=== PATIENT | male | born 1975 | race Caucasian/White ===

== ENCOUNTER 2023-08-27 03:56 | Emergency (ER) | payer MEDICAID, OTHER ==
[~2023-08-27] VITALS: Ht 170.2 cm; Wt 106.6 kg
[2023-08-27] MEDS ORDERED: IBUPROFEN 600 MG TABLET PO ONE (04:30)
[2023-08-27] MEDS ORDERED: IBUPROFEN 600 MG TABLET ONE (04:31)
[2023-08-27] MEDS ORDERED: IBUP-1953 PO (05:49)
[2023-08-27 08:22] VITALS: BP 122/88; TEMP 98.3; O2SAT 98
== END 2023-08-27 08:22 | disposition home or self-care (01) ==
LOC: ER 04:07
DX: S83.92XA Sprain of unspecified site of left knee, initial encounter (principal); F17.200 Nicotine dependence, unspecified, uncomplicated; Z60.2 Problems related to living alone; V29.99XA Rider (driver) (passenger) of other motorcycle injured in unspecified traffic accident, initial encounter; Y93.89 Activity, other specified; Y92.89 Other specified places as the place of occurrence of the external cause; Y99.8 Other external cause status
CPT/HCPCS: 73564-TC

== ENCOUNTER 2024-01-21 07:50 | Emergency (ER) | payer MEDICAID, OTHER ==
[~2024-01-21] VITALS: Ht 170.2 cm; Wt 93.0 kg
[~2024-01-21 07:50] MED LIST: IBUP-1953 PO
[2024-01-21 08:01] VITALS: BP 155/82; TEMP 98.8; O2SAT 96
[2024-01-21] MEDS ORDERED: AMOXICILLIN TRIHYDRATE 250 MG CAPSULE ONE ×2 (08:31→08:34)
[2024-01-21] MEDS ORDERED: AMOX-430 PO (08:32)
[2024-01-21] MEDS ORDERED: IBUPROFEN 600 MG TABLET ONE (08:32)
[2024-01-21] MEDS: AMOXICILLIN TRIHYDRATE 500 MG CAPSULE PO ONE (08:36)
[2024-01-21] MEDS: IBUPROFEN 600 MG TABLET PO ONE (08:36)
== END 2024-01-21 09:09 | disposition home or self-care (01) ==
LOC: ER 07:56
DX: J02.9 Acute pharyngitis, unspecified (principal); F17.200 Nicotine dependence, unspecified, uncomplicated; Z79.899 Other long term (current) drug therapy

== ENCOUNTER 2024-03-28 05:56 | Emergency (ER) | payer MEDICAID ==
[~2024-03-28] VITALS: Ht 170.2 cm; Wt 93.0 kg
[~2024-03-28 05:56] MED LIST changes: +AMOX-430 PO
[2024-03-28] MEDS: BACITRACIN ZINC OINT (15 GM) 15 GM TUBE TP SCH (06:59)
[2024-03-28 07:02] VITALS: BP 151/79; TEMP 98; O2SAT 99
== END 2024-03-28 07:14 | disposition home or self-care (01) ==
LOC: ER 05:56
DX: S81.812A Laceration without foreign body, left lower leg, initial encounter (principal); F17.200 Nicotine dependence, unspecified, uncomplicated; Z60.2 Problems related to living alone; V19.9XXA Pedal cyclist (driver) (passenger) injured in unspecified traffic accident, initial encounter; Y93.89 Activity, other specified; Y92.488 Other paved roadways as the place of occurrence of the external cause; Y99.8 Other external cause status

== ENCOUNTER 2024-04-08 20:49 | Emergency (ER) | payer MEDICAID ==
[~2024-04-08] VITALS: Ht 170.2 cm; Wt 79.4 kg
[2024-04-08] MEDS ORDERED: KETOROLAC TROMETHAMINE 15 MG/ML VIAL ONE (22:40)
[2024-04-08] MEDS ORDERED: LIDOCAINE 5% (PATCH) 1 EA PATCH TP ONE (22:41)
[2024-04-08] MEDS ORDERED: CYCLOBENZAPRINE 10 MG TABLET ONE (22:41)
[2024-04-08] MEDS ORDERED: ACETAMINOPHEN ES 500 MG TABLET ONE (22:41)
[2024-04-08] MEDS: CYCLOBENZAPRINE 10 MG TABLET PO ONE (22:51)
[2024-04-08] MEDS: KETOROLAC TROMETHAMINE 15 MG/ML VIAL IM ONE (22:51)
[2024-04-08] MEDS: ACETAMINOPHEN ES 500 MG TABLET PO ONE (22:51)
[2024-04-08] MEDS: LIDOCAINE 5% (PATCH) 1 EA PATCH TP ONE (22:51)
[2024-04-08] MEDS ORDERED: IBUP-1955 PO (23:04)
[2024-04-08] MEDS ORDERED: CYCL5TAB PO (23:04)
[2024-04-08] MEDS ORDERED: ACET-2605 PO (23:04)
[2024-04-08 23:27] VITALS: BP 139/92; TEMP 98.3; O2SAT 98
== END 2024-04-08 23:28 | disposition home or self-care (01) ==
LOC: ER 20:58
DX: M54.59 Other low back pain (principal); F17.200 Nicotine dependence, unspecified, uncomplicated; Z60.2 Problems related to living alone
CPT/HCPCS: 99284; 96372; J1885